=== PATIENT | male | born 1985 | race Caucasian/White ===

== ENCOUNTER 2016-11-11 15:20 | Emergency (ER) | payer OTHER ==
[~2016-11-11] VITALS: Ht 180.3 cm; Wt 113.4 kg
--- NOTE | ~2016-11-11 | EKG ---
[facility] [address] [place] [address] ELECTROCARDIOGRAM REPORT Name: PEYTON BURCH Room #: [facility] Michelle#: [id number] Admission: 11/11/16 Attend Phys: Discharge: 11/11/16 Date of : 89 Report #: [id number] THIS REPORT FOR: //name// [facility] ED Test Date: 2016-11-11 Test Time: 15:21:19 Pat Name: PEYTON BURCH Department: Room: Gender: [employer]: SAM : 1985 Requested By: Carie Hannah Order Number: [id number] MD: Jordan Barrett Measurements Intervals [place]ley Rate: 89 P: 48 ID: [id number] QRS: -5 QRSD: 104 T: 22 QT: 381 QTc: 459 Interpretive Statements Sinus rhythm Poor R-wave progression No previous ECG available for comparison Electronically Signed On 11-12-2016 9:03:12 [employer] by Jordan Barrett [email or web address] <ELECTRONICALLY SIGNED> By: Jordan Barrett MD, [facility] 11/12/16 0903 1521 1521 Jordan Barrett MD, FACC /EPI
[2016-11-11 15:53] LABS: HEMATOCRIT 45.2 % (42.0-52.0); HEMOGLOBIN 15.3 gm/dL (14.0-18.0); MCH 28.5 pg (26.0-34.0); MCHC 33.9 % (28.0-37.0); MCV 83.9 fL (80.0-100.0); RBC 5.39 mil/uL (4.50-6.00); RDW 13.9 % (10.5-14.5); WBC 8.9 thou/uL (4.0-11.0)
[2016-11-11 16:01] LABS: ANION GAP 10 mmol/L (7-16); BUN 11 mg/dL (7-18); CHLORIDE 102 mmol/L (98-107); CO2 26 mmol/L (21-32); GLUCOSE 100 mg/dL (70-99); POTASSIUM 3.4 mmol/L (3.5-5.1); SODIUM 138 mmol/L (136-145)
[2016-11-11 16:10] LABS: TROPONIN-I < 0.04 ng/mL (<0.04-0.07)
[2016-11-11] MEDS ORDERED: CARAFATE 1 GM TA1 G1 PO (16:14)
[2016-11-11] MEDS ORDERED: OMEPRAZOLE 20 M20 M1 PO (16:14)
[2016-11-11 16:38] VITALS: BP 143/95
== END 2016-11-11 16:39 | disposition home or self-care (01) ==
LOC: ER 15:20
PROVIDERS: Physician Assistant
DX: R07.89 Other chest pain (principal); Z77.22 Contact with and (suspected) exposure to environmental tobacco smoke (acute) (chronic)

== ENCOUNTER 2017-01-19 10:03 | Emergency (ER) | payer OTHER ==
[~2017-01-19] VITALS: Ht 180.3 cm; Wt 104.3 kg
[~2017-01-19 10:03] MED LIST: CARAFATE 1 GM TA1 G1 PO; OMEPRAZOLE 20 M20 M1 PO
[2017-01-19] MEDS ORDERED: MOBIC15 MG PO (10:22)
[2017-01-19] MEDS ORDERED: DOXYCYCLINE 10100 MG PO (10:22)
[2017-01-19] MEDS ORDERED: FLONASE 0.05%50 MCG NASAL (10:22)
[2017-01-19 10:35] VITALS: BP 159/93
== END 2017-01-19 10:36 ==
LOC: ER 10:03
DX: H92.01 Otalgia, right ear (principal); J32.9 Chronic sinusitis, unspecified; Z77.22 Contact with and (suspected) exposure to environmental tobacco smoke (acute) (chronic)

== ENCOUNTER 2021-09-10 10:24 | Emergency (ER) | payer OTHER ==
[~2021-09-10] VITALS: Ht 147.3 cm; Wt 117.9 kg
[~2021-09-10 10:24] MED LIST changes: +DOXYCYCLINE 10100 MG PO; +FLONASE 0.05%50 MCG NASAL; +MEDROLDOSEPACK PO; +MOBIC15 MG PO
[2021-09-10] MEDS ORDERED: MEDROLDOSEPACK PO (11:06)
[2021-09-10] MEDS ORDERED: MOBIC7.5 MG PO (11:06)
[2021-09-10] MEDS ORDERED: AMOXICILLIN500 M1 PO (11:06)
[2021-09-10 11:21] VITALS: BP 151/95
== END 2021-09-10 11:21 | disposition home or self-care (01) ==
LOC: ER 10:24
DX: H66.92 Otitis media, unspecified, left ear (principal); J06.9 Acute upper respiratory infection, unspecified; F17.210 Nicotine dependence, cigarettes, uncomplicated; Z79.1 Long term (current) use of non-steroidal anti-inflammatories (NSAID); Z79.891 Long term (current) use of opiate analgesic; Z79.899 Other long term (current) drug therapy

== ENCOUNTER → 2021-11-28 | Outpatient (CLI) | payer OTHER ==
[~2021-11-28] MED LIST changes: +AMOXICILLIN500 M1 PO; +MOBIC7.5 MG PO
== END ==
LOC: RAD 10:46
PROVIDERS: ATTEND Nurse Practitioner
DX: M79.2 Neuralgia and neuritis, unspecified (principal)

== ENCOUNTER → 2021-12-14 | Outpatient (CLI) | payer OTHER | LOC: CAT 12-03 04:52 | PROVIDERS: ATTEND Nurse Practitioner | DX: R51.9 Headache, unspecified (principal); J34.89 Other specified disorders of nose and nasal sinuses ==